=== PATIENT | female | born 1960 | race Caucasian/White ===

== ENCOUNTER 2017-01-23 10:43 | Emergency (ER) | payer OTHER, BC ==
[~2017-01-23] VITALS: Ht 157.5 cm; Wt 60.0 kg
[~2017-01-23 10:43] MED LIST: ALPR0.5T6 PO; AMLO-145 PO; ASPI-535 PO; ASPI-664 PO; CHOL2000 PO; CLON-379 PO; GABA300C16 PO; GLIM4TAB PO; HYDR-3504; HYDR-3672 PO; INSU100C SC; LANT3I; LINA5TAB PO; LOSA100T7 PO; METF500T4 PO; NORT25CA PO; NP.1OP15; PANT40TA4 PO; TOPI-44 PO
[2017-01-23 10:46] VITALS: Ht 157.5 cm; Wt 60.0 kg
[2017-01-23] MEDS ORDERED: ZOLP5TAB6 PO (11:16)
[2017-01-23] MEDS ORDERED: ALPR0.5T6 PO (11:17)
[2017-01-23] MEDS ORDERED: MAXZ25 PO (11:17)
[2017-01-23] MEDS ORDERED: CARI350T PO (11:17)
[2017-01-23] MEDS ORDERED: GABA100C14 PO (11:18)
[2017-01-23] MEDS ORDERED: MTF1000T PO (11:18)
[2017-01-23] MEDS ORDERED: AMLO5TAB4 PO (11:18)
[2017-01-23] MEDS ORDERED: SOLIQUA SUBCUTANE (11:19)
[2017-01-23] MEDS ORDERED: KETOROLAC 15 MG INJ IV STA (11:28)
[2017-01-23] MEDS ORDERED: SOD CHLORIDE 0.9% 1,000 ML IV STA (11:28)
[2017-01-23] MEDS ORDERED: ONDANSETRON 4 MG INJ IV STA (11:28)
[2017-01-23] MEDS ORDERED: LIDOCAINE/MYLANTA 40 ML BTL PO STA (11:28)
[2017-01-23] MEDS ORDERED: BELLADONNA/PHENOBARBITAL TAB PO STA (11:28)
[2017-01-23] MEDS ORDERED: FAMOTIDINE 20 MG TAB PO STA (11:28)
[2017-01-23 11:45] LABS: ADD SCAN DIFF NO
[2017-01-23 11:49] LABS: ADD UMIC NO; URINE BILIRUBIN (Dip) NEGATIVE (NEGATIVE); URINE BLOOD (Dip) NEGATIVE (NEGATIVE); URINE COLOR LT. YELLOW (YELLOW); URINE KETONES (Dip) NEGATIVE (NEGATIVE); URINE LEUKOCYTE ESTERASE (Dip) NEGATIVE (NEGATIVE); URINE NITRITE (Dip) NEGATIVE (NEGATIVE); URINE TOTAL PROTEIN (Dip) NEGATIVE (NEGATIVE); URINE UROBILINOGEN (Dip) 0.2 E.U./dL (0.1-1.0)
[2017-01-23 11:55] LABS: BASOPHIL # 0.1 10^3/ul (0.0-0.1); BASOPHILS % 0.5 % (0.0-2.0); EOSINOPHILS % 0.3 % (0.0-7.0); HEMATOCRIT 44.9 % (37.0-47.0); HEMOGLOBIN 14.7 g/dl (12.0-16.0); LYMPHOCYTES # 3.2 10^3/ul (0.8-2.9); LYMPHOCYTES % 29.2 % (15.0-51.0); MEAN CORPUSCULAR HEMOGLOBIN 26.4 pg (29.0-33.0); MEAN CORPUSCULAR HGB CONC 32.7 g/dl (32.0-37.0); MEAN CORPUSCULAR VOLUME 80.8 fl (82.0-101.0); MEAN PLATELET VOLUME 10.2 fl (7.4-10.4); MONOCYTE # 0.6 10^3/ul (0.3-0.9); MONOCYTES % 5.4 % (0.0-11.0); NEUTROPHIL # 7.1 10^3/ul (1.6-7.5); NEUTROPHILS % 64.3 % (39.0-77.0); PLATELET COUNT 317 10^3/UL (140-415); RED BLOOD COUNT 5.56 10^6/ul (4.20-5.40); RED CELL DISTRIBUTION WIDTH 13.8 % (11.5-14.5)
[2017-01-23 11:57] LABS: ALBUMIN 5.2 g/dl (3.3-4.9); CHLORIDE 93 mmol/L (97-110)
[2017-01-23 11:58] LABS: POTASSIUM 3.9 mmol/L (3.5-5.1); SODIUM 139 mmol/L (135-144)
[2017-01-23 12:00] LABS: ANION GAP 18 (8-16); ASPARTATE AMINO TRANSFERASE 56 IU/L (15-46); BILIRUBIN,INDIRECT 0.2 mg/dl (0-1.1); BILIRUBIN,TOTAL 0.2 mg/dl (0.2-1.3); CARBON DIOXIDE 32 mmol/L (21-31); CREATININE 0.77 mg/dl (0.44-1.00)
[2017-01-23 12:01] LABS: ALANINE AMINOTRANSFERASE 93 IU/L (13-69); ALBUMIN/GLOBULIN RATIO 1.44; ALKALINE PHOSPHATASE 96 IU/L (42-121); BLOOD UREA NITROGEN 13 mg/dl (7-20); CALCIUM 10.1 mg/dl (8.4-10.2); GLUCOSE 141 mg/dl (70-220); TOTAL PROTEIN 8.8 g/dl (6.1-8.1)
[2017-01-23 12:17] LABS: TROPONIN-I < 0.012 ng/ml (0.00-0.12)
--- NOTE | 2017-01-23 12:59 | RADRPT ---
PROCEDURE: CT Abdomen and Pelvis without contrast. CLINICAL INDICATION: Abdominal pain. Epigastric pain. TECHNIQUE: CT scan of the abdomen and pelvis without contrast was performed on a multi-slice CT sc sarah without intravenous contrast. Coronal and sagittal reformatted images were obtained from the axial source images. Images were reviewed on a high-resolution PACS workstation. One or more of the following does reduction techniques were used: Automated exposure control; adjustment of the mA an d/or kV according to patient size; use of the aorta of reconstruction technique. The total exam CTD I equals 11.0 mGy and the total exam DLP equals 576.6 mGy-cm. COMPARISON: CT abdomen pelvis 12/31/2013 FINDINGS: There is minimal basilar scarring or atelectasis.. Heart size is normal, and there is no evidence o f pericardial thickening or effusion. Coronary artery calcifications are present. There is diffuse decreased echogenicity of the hepatic parenchyma consistent with fatty infiltration . The liver, spleen, and pancreas are otherwise normal given the limitations of a noncontrast CT ex amination. The gallbladder is normal. There is mild nodularity of the left adrenal gland which is stable compared to 2013. The adrenal gl ands are otherwise normal. There is a 2 mm nonobstructing right lower pole renal calculus, stable c ompared to 12/31/2013. No other renal calculi are seen. There is no hydronephrosis. The aorta is of normal caliber. Atherosclerotic calcifications are present. There is no retroperito juan a lymph node enlargment. There is no evidence of large or small bowel obstruction. There are a few scattered colonic diverti cula. There is no CT evidence of diverticulitis. A normal appendix is identified. No free fluid or fluid collections are identified. No inflammatory changes are seen. The uterus is absent. No enlarged pelvic sidewall lymph nodes are seen. The bladder is within zaheer l limits. No free fluid is identified. The inguinal regions are unremarkable. There are degenerative change of the lumbar spine, worst in the lower lumbar spine. IMPRESSION: 1. No CT evidence of acute intra-abdominal or pelvic process. 2. Atherosclerotic vascular disease including coronary artery calcifications. 3. Fatty infiltration of the liver. 4. 2 mm nonobstructing right lower pole renal calculus. 5. Diverticulosis without evidence of diverticulitis RPTAT: AA .Barry Ward MD, MD Date Time Electronically viewed and signed by .Barry Ward MD, MD on 01/23/2017 12:58 .B/
[2017-01-23] MEDS ORDERED: IBUP-1542 PO (13:39)
[2017-01-23] MEDS ORDERED: ONDA4TAB8 PO (13:39)
[2017-01-23] MEDS ORDERED: MAG355OR14 PO (13:39)
--- NOTE | 2017-01-23 13:42 | ERD ---
ER Documentation Chief Complaint Date/Time DATE: 01/23/17 TIME: 13:40 Chief Complaint tearful, c/o diarrhea, vomiting HPI 56-year-old woman complains of 2 days of vomiting and diarrhea about 3 episodes of each per day with abdominal cramping. She denies melena or blood per rectum , no hematemesis or bilious emesis noted, no fevers or chills, no dysuria, no complaints of chest pain or shortness of breath. Patient denies any unusual oral intake or ingestion of poorly stored foods. ROS All systems reviewed and are negative except as per history of present illness. Medications Home Meds Active Scripts Ondansetron Hcl* (Zofran*) 4 Mg Tablet, 4 MG PO Q8H Y for NAUSEA AND/OR VOMITING , #14 TAB Prov:LANA BURRIS MD 01/23/17 Mag Hydrox/Al Hydrox/Simeth (Maalox Advanced Suspension) 355 Ml Oral.susp, 2 TSP PO TID for PAIN, #24 OZ Prov:LANA BURRIS MD 01/23/17 Ibuprofen* (Ibuprofen*) 600 Mg Tablet, 600 MG PO Q8 for PAIN AND/OR INFLAMMATION , #30 TAB Prov:LANA BURRIS MD 01/23/17 Reported Medications [Soliqua] No Conflict Check, 30-45 UNIT SUBCUTANE DAILY 01/23/17 Metformin* (Glucophage*) 1,000 Mg Tablet, 1000 MG PO BID, #60 TAB 01/23/17 Gabapentin* (Gabapentin*) 100 Mg Capsule, 100 MG PO QHS, #90 CAP 01/23/17 Amlodipine Besylate* (Norvasc*) 5 Mg Tablet, 5 MG PO DAILY, TAB 01/23/17 Alprazolam* (Alprazolam*) 0.5 Mg Tablet, 0.5 MG PO DAILY Y for ANXIETY, TAB 01/23/17 Carisoprodol* (Soma*) 350 Mg Tablet, 350 MG PO QHS Y for MUSCLE SPASMS, TAB 01/23/17 Triamterene/Hctz* (Maxzide (37.5-25)*) 1 Each Tablet, 1 EACH PO DAILY, #30 TAB 01/23/17 Zolpidem Tartrate* (Zolpidem Tartrate*) 5 Mg Tablet, 5 MG PO QHS Y for INSOMNIA , #30 TAB 01/23/17 Discontinued Reported Medications Topiramate* (Topiramate*) 25 Mg Tablet, 25 MG PO BID 11/10/15 Naphazoline Hcl* (Ak-Con*) 0.1% - 15 ML Drops Opht 11/10/15 Nortriptyline Hcl* (Nortriptyline Hcl*) 25 Mg Capsule, 25 MG PO DAILY 11/10/15 Gabapentin* (Gabapentin*) 300 Mg Capsule, 300 MG PO TID 11/10/15 Pantoprazole* (Pantoprazole*) 40 Mg Tablet.dr, 40 MG PO DAILY, #30 11/10/15 Alprazolam* (Alprazolam*) 0.5 Mg Tablet, 0.5 MG PO DAILY 11/10/15 Hydralazine Hcl* (Apresoline*) 50 Mg Tab, 50 MG PO BID 11/10/15 Hydrocodone Bit-Acetaminophen (Hydrocodone-APAP) 10-325MG Tablet, #45 11/10/15 Linagliptin (TRADJENTA) 5 Mg Tablet, 5 MG PO DAILY 11/10/15 Insulin Glargine* (Lantus*) 100 Unit/Ml Soln 11/10/15 Losartan Potassium* (Losartan Potassium*) 100 Mg Tablet, 100 MG PO DAILY 11/10/15 Glimepiride* (Glimepiride*) 4 Mg Tablet, 4 MG PO BID 11/10/15 Aspirin* (Aspirin* EC) 81 Mg Tablet.dr, 81 MG PO DAILY 11/10/15 Amlodipine Besylate* (Amlodipine Besylate*) 5 Mg Tablet, 5 MG PO DAILY 11/10/15 Metformin* (Glucophage*) 500 Mg Tab, 500 MG PO BID 11/10/15 Cholecalciferol* (Vitamin D3*) 2,000 Unit Cap, 2000 UNIT PO DAILY, CAP 01/26/15 Aspirin Ec (Aspir 81) 81 Mg Tablet.dr, 81 MG PO DAILY, TAB 01/26/15 Clonidine Hcl* (Clonidine Hcl*) 0.1 Mg Tab, 0.1 MG PO BID, TAB 01/26/15 Insulin Lispro (Humalog) 100 U/Ml Cartridge, 15 UNITS SC TID, EA 01/26/15 Allergies Allergies: Coded Allergies: No Known Drug Allergies (Verified Allergy, Unknown, 01/26/15) PMhx/Soc Hypertension, diabetes mellitus, obesity, gastritis History of Surgery: Yes (neck surgery ) Anesthesia Reaction: No Hx Neurological Disorder: No Hx Respiratory Disorders: No Hx Cardiac Disorders: Yes (HTN, hyperlipdemia ) Hx Psychiatric Problems: No Hx Miscellaneous Medical Probl: Yes (DM) Hx Alcohol Use: No Hx Substance Use: No Hx Tobacco Use: No Smoking Status: Never smoker FmHx Family History: diabetes Physical Exam Vitals Vital Signs Date Time Temp Pulse Resp B/P Pulse Ox O2 Delivery O2 Flow Rate FiO2 01/23/17 14:42 98.0 73 18 128/68 99 Room Air 01/23/17 10:46 98.1 94 20 187/72 99 Physical Exam GENERAL: Well-developed, well-nourished, well-hydrated, in no apparent distress , looks nontoxic in appearance HEENT: Moist mucous membranes, pink conjunctiva, no cervical spine tenderness or step-off deformities, no goiter, no jaundice or icterus, extraocular movements intact without pain. No submandibular induration, and no pharyngeal erythema NEURO: Alert and oriented 3, cranial nerves II through XII intact bilaterally, pupils equal round reactive to light, no focal deficits or facial asymmetry, sensation intact distally Strength 5/5 in upper and lower extremities bilaterally CARDIAC: Regular rate and rhythm, no murmurs rubs or gallops LUNGS: Clear bilaterally no wheezing crackles or stridor ABDOMEN: Soft nontender, no guarding, no rigidity, no rebound, no psoas sign no obturator sign. Normoactive bowel sounds SKIN: Warm and dry to touch, no abrasions, contusions, or hematomas, no lacerations, no ecchymosis, no target lesions, and without ulcers EXTREMITIES: No clubbing cyanosis or edema, calves are bilaterally symmetrical, no Homans sign, no popliteal cord sign. Distal pulses equal and bilateral PSYCH: Normal affect without agitation or irritability Result Diagram: 01/23/17 1125 01/23/17 1125 Results 24 hrs Laboratory Tests Test 01/23/17 11:20 01/23/17 11:25 Urine Color LT. YELLOW Urine Clarity CLEAR Urine pH 7.0 Urine Specific Jackson 1.010 Urine Ketones NEGATIVE Urine Nitrite NEGATIVE Urine Bilirubin NEGATIVE Urine Urobilinogen 0.2 E.U./dL Urine Leukocyte Esterase NEGATIVE Urine Hemoglobin NEGATIVE Urine Glucose 0.5%% Urine Total Protein NEGATIVE White Blood Count 11.010^3/ul Red Blood Count 5.5610^6/ul Hemoglobin 14.7g/dl Hematocrit 44.9% Mean Corpuscular Volume 80.8fl Mean Corpuscular Hemoglobin 26.4pg Mean Corpuscular Hemoglobin Concent 32.7g/dl Red Cell Distribution Width 13.8% Platelet Count 09965^3/UL Mean Platelet Volume 10.2fl Neutrophils % 64.3% Lymphocytes % 29.2% Monocytes % 5.4% Eosinophils % 0.3% Basophils % 0.5% Nucleated Red Blood Cells % 0.0/100WBC Neutrophils # 7.110^3/ul Lymphocytes # 3.210^3/ul Monocytes # 0.610^3/ul Eosinophils # 0.010^3/ul Basophils # 0.110^3/ul Nucleated Red Blood Cells # 0.010^3/ul Sodium Level 139mmol/L Potassium Level 3.9mmol/L Chloride Level 93mmol/L Carbon Dioxide Level 32mmol/L Anion Gap 18 Blood Urea Nitrogen 13mg/dl Creatinine 0.77mg/dl Glucose Level 141mg/dl Calcium Level 10.1mg/dl Total Bilirubin 0.2mg/dl Direct Bilirubin 0.00mg/dl Indirect Bilirubin 0.2mg/dl Aspartate Amino Transf (AST/SGOT) 56IU/L Alanine Aminotransferase (ALT/SGPT) 93IU/L Alkaline Phosphatase 96IU/L Troponin I < 0.012ng/ml Total Protein 8.8g/dl Albumin 5.2g/dl Globulin 3.60g/dl Albumin/Globulin Ratio 1.44 Lipase 227U/L Current Medications Medications (Trade) Dose Ordered Sig/Chica Route PRN Reason Start Time Stop Time Status Last Admin Dose Admin Sodium Chloride (NS) 1,000 ml @ 1,000 mls/hr Q1H STAT IV 01/23/17 11:28 01/23/17 12:27 DC 01/23/17 12:03 Ondansetron HCl (Zofran Inj) 4 mg ONCE STAT IV 01/23/17 11:28 01/23/17 11:30 DC 01/23/17 12:04 Famotidine (Pepcid) 40 mg ONCE STAT PO 01/23/17 11:28 01/23/17 11:30 DC 01/23/17 12:03 Miscellaneous Medication (Gi Cocktail (2)) 40 ml ONCE STAT PO 01/23/17 11:28 01/23/17 11:30 DC 01/23/17 12:04 Belladonna/ Phenobarbital () 2 tab ONCE STAT PO 01/23/17 11:28 01/23/17 11:30 DC 01/23/17 12:04 Ketorolac Tromethamine (Toradol) 15 mg ONCE STAT IV 01/23/17 11:28 01/23/17 11:30 DC 01/23/17 12:04 Procedures/MDM IV line was established patient was placed on recreation professor rhythm strip revealed a sinus rhythm at about 80 bpm with upright P and T waves. Patient was afebrile. I administered 1 L normal saline intravenously, Toradol 50 mg IV, Zofran 4 mg IV , and a GI cocktail 50 cc p.o. Patient also received famotidine 40 mg p.o. with good response. EKG performed, read by me revealed a normal sinus rhythm at 78 bpm, normal axis , right ventricular conduction delay, QRS duration 104 ms, no concerning ST elevations or depressions noted. CT scan of the abdomen pelvis revealed right inferior pole calculus, positive diverticulosis without diverticulitis. No acute inflammatory infectious pathology noted. Please refer to radiologist dictation for full report. CBC and electrolytes were unremarkable, liver function tests normal, troponin was negative. Urine analysis was negative for infection. Differential diagnoses considered, included but not limited to acute coronary syndrome, pulmonary embolism, aortic dissection, abdominal aortic aneurysm, sepsis, stroke, meningitis, encephalitis, pneumonia, appendicitis, cholecystitis , bowel obstruction, pyelonephritis, nephrolithiasis, cystitis, as well as metabolic, hematologic, and electrolyte abnormalities. As well as abscess, cellulitis, fractures, and dislocations. Patient feels much better at this time, and vital signs are normal, symptoms have improved. I did give strict instructions to return to the ED if symptoms continue or worsen, patient will otherwise follow-up with primary care physician. Patient understood instructions and agreed to plan. Departure Diagnosis: Primary Impression: Hypertension Hypertension type: essential hypertension Qualified Code: I10 - Essential hypertension Additional Impressions: Vomiting and diarrhea Renal calculus Diverticulosis Diverticulosis site: diverticulosis of large intestine Diverticulosis bleeding: diverticulosis without bleeding Qualified Code: K57.30 - Diverticulosis of large intestine without hemorrhage Condition: Good Patient Instructions: Vomiting And Diarrhea, Nonspecific (Adult) Referrals: HAO TIMMONS MD (PCP) LANA BURRIS MD Jan 23, 2017 13:42
[2017-01-23 14:42] VITALS: BP 128/68; PULSE 73; RESP 18; TEMP 98
== END 2017-01-23 14:42 | disposition home or self-care (01) ==
LOC: E/R 10:43
DX: I10 Essential (primary) hypertension (principal); R11.10 Vomiting, unspecified; R19.7 Diarrhea, unspecified; N20.0 Calculus of kidney; K57.30 Diverticulosis of large intestine without perforation or abscess without bleeding; E11.9 Type 2 diabetes mellitus without complications; Z79.82 Long term (current) use of aspirin; Z79.84 Long term (current) use of oral hypoglycemic drugs; Z79.4 Long term (current) use of insulin
CPT/HCPCS: 74176; 80053; 81003; 83690; 84484; 85025; 93005; J1885; J2405; J7030; 36415; 96374; 96375

== ENCOUNTER 2017-05-30 23:13 | Emergency (ER) | payer OTHER, BC ==
[~2017-05-30] VITALS: Ht 157.5 cm; Wt 80.0 kg
[~2017-05-30 23:13] MED LIST changes: -AMLO-145 PO; +AMLO5TAB4 PO; -ASPI-535 PO; -ASPI-664 PO; +CARI350T PO; -CHOL2000 PO; -CLON-379 PO; +GABA100C14 PO; -GABA300C16 PO; -GLIM4TAB PO; -HYDR-3504; -HYDR-3672 PO; +IBUP-1542 PO; -INSU100C SC; -LANT3I; -LINA5TAB PO; -LOSA100T7 PO; +MAG355OR14 PO; +MAXZ25 PO; -METF500T4 PO; +MTF1000T PO; -NORT25CA PO; -NP.1OP15; +ONDA4TAB8 PO; -PANT40TA4 PO; +SOLIQUA SUBCUTANE; -TOPI-44 PO; +ZOLP5TAB7 PO
[2017-05-30 23:16] VITALS: Ht 157.5 cm; Wt 80.0 kg
[2017-05-30] MEDS ORDERED: ONDANSETRON 4 MG INJ IV STA (23:24)
[2017-05-30] MEDS ORDERED: SODIUM CHLORIDE 0.9% 1L BAG IV* STA (23:24)
[2017-05-30] MEDS ORDERED: morphine 10 MG INJ IV ONE (23:30)
--- NOTE | 2017-05-31 00:10 | RADRPT ---
PROCEDURE: XR Chest. CLINICAL INDICATION: Sepsis. TECHNIQUE: AP Portable chest. COMPARISON: 01/26/2015 FINDINGS: The cardiomediastinal silhouette is normal. The lungs are clear. The osseous structures are unrema rkable. There is no free air under the diaphragm. IMPRESSION: No acute findings. RPTAT: HIKT .Maurice Anton MD, MD Date Time Electronically viewed and signed by .Maurice Anton MD, MD on 05/31/2017 00:10 .T/
[2017-05-31] MEDS ORDERED: morphine 4 MG/ML VIAL IV STA ×2 (00:15→02:22)
[2017-05-31 00:29] LABS: ADD UMIC NO; UR ASCORBIC ACID NEGATIVE (NEGATIVE); UR BILIRUBIN (Dip) NEGATIVE (NEGATIVE); UR BLOOD (Dip) NEGATIVE (NEGATIVE); UR CLARITY CLEAR (CLEAR); UR COLOR COLORLESS (YELLOW); UR GLUCOSE (Dip) 3+ mg/dL (NEGATIVE); UR KETONES (Dip) NEGATIVE (NEGATIVE); UR LEUKOCYTE ESTERASE (Dip) NEGATIVE Leu/ul (NEGATIVE); UR NITRITE (Dip) NEGATIVE (NEGATIVE); UR SPECIFIC GRAVITY (Dip) 1.001 (1.003-1.030); UR TOTAL PROTEIN (Dip) NEGATIVE (NEGATIVE); UR UROBILINOGEN (Dip) NEGATIVE (NEGATIVE)
[2017-05-31 00:36] LABS: BASOPHIL # 0.1 10^3/ul (0.0-0.1); BASOPHILS % 0.5 % (0.0-2.0); EOSINOPHILS # 0.2 10^3/ul (0.0-0.5); EOSINOPHILS % 1.8 % (0.0-7.0); HEMATOCRIT 38.7 % (37.0-47.0); HEMOGLOBIN 12.7 g/dl (12.0-16.0); MEAN CORPUSCULAR HEMOGLOBIN 27.3 pg (29.0-33.0); MEAN CORPUSCULAR HGB CONC 32.8 g/dl (32.0-37.0); MEAN CORPUSCULAR VOLUME 83.2 fl (82.0-101.0); MEAN PLATELET VOLUME 10.7 fl (7.4-10.4); MONOCYTE # 0.8 10^3/ul (0.3-0.9); MONOCYTES % 7.5 % (0.0-11.0); NEUTROPHIL # 5.9 10^3/ul (1.6-7.5); NEUTROPHILS % 53.8 % (39.0-77.0); PLATELET COUNT 238 10^3/UL (140-415); RED BLOOD COUNT 4.65 10^6/ul (4.20-5.40); RED CELL DISTRIBUTION WIDTH 14.6 % (11.5-14.5)
--- NOTE | 2017-05-31 00:45 | RADRPT ---
PROCEDURE: CT Abdomen and pelvis without contrast. CLINICAL INDICATION: Abdominal pain. TECHNIQUE: CT scan of the abdomen and pelvis was performed on a multi-detector high-resolution CT scanner. Contiguous axial images were obtained from the lung bases to the ischial tuberosities wit hout intravenous contrast. Coronal and sagittal reformatted images were also obtained. Images were reviewed on the PACS workstation. One or more of the following dose reduction techniques were used: - Automated exposure control. - Adjustment of the mA and/or kV according to patient size. - Use of iterative reconstruction technique. Exam CTD/vol = 11.72 mGy. Total exam DLP = 621.62 mGy-cm. COMPARISON: 01/23/2017. FINDINGS: Evaluation of the lung bases demonstrates minimal bibasilar atelectasis. Abdomen: The liver is normal in size and diffusely low in attenuation consistent with fatty infiltr ation. There is no focal mass or dilatation of the biliary tree. The gallbladder is not distended. The spleen, pancreas and bilateral adrenal glands are within normal limits. Bilateral kidneys are normal in size with no contour deforming mass identified. There is a 1 mm calculus within the lowe r pole of the right kidney. There is no radiopaque ureteral calculus identified. There is no hydro nephrosis or hydroureter. There is no retroperitoneal adenopathy. The abdominal aorta is of normal caliber with scattered atherosclerotic calcifications. There is no abnormal bowel wall thickening or distension. There is no bowel obstruction or free air . A normal appendix is identified. There is no diverticulosis or diverticulitis. There is no asci jorgito. Pelvis: The bladder is unremarkable. The uterus is absent. There is no significant pelvic adenopa thy or free fluid. Evaluation of the osseous structures demonstrates no suspicious lytic or blastic lesion. IMPRESSION: No acute abnormality identified within the abdomen and pelvis. Fatty infiltration of the liver. Nonobstructing right renal calculus. Vascular calcifications reflective of atherosclerosis. .Don Hook MD, MD Date Time Electronically viewed and signed by .Don Hook MD, MD on 05/31/2017 00:45 .T/
[2017-05-31] MEDS ORDERED: KETOROLAC 30 MG INJ IV STA (00:54)
[2017-05-31 00:56] LABS: INR 0.82; PROTIME 11.3 Sec (12.2-14.2); PT RATIO 0.9
[2017-05-31 00:57] LABS: PARTIAL THROMBOPLASTIN TIME 29.2 Sec (25.0-35.0)
[2017-05-31 01:04] LABS: ALANINE AMINOTRANSFERASE 56 IU/L (13-69); ALBUMIN 4.1 g/dl (3.3-4.9); ALBUMIN/GLOBULIN RATIO 1.51; ALKALINE PHOSPHATASE 98 IU/L (42-121); ANION GAP 24 (8-16); ASPARTATE AMINO TRANSFERASE 30 IU/L (15-46); BLOOD UREA NITROGEN 13 mg/dl (7-20); CALCIUM 9.8 mg/dl (8.4-10.2); CARBON DIOXIDE 31 mmol/L (21-31); CHLORIDE 94 mmol/L (97-110); CREATININE 0.64 mg/dl (0.44-1.00); GLUCOSE 238 mg/dl (70-220); POTASSIUM 3.9 mmol/L (3.5-5.1); SODIUM 145 mmol/L (135-144); TOTAL PROTEIN 6.8 g/dl (6.1-8.1)
[2017-05-31] MEDS ORDERED: IOHEXOL 100 ML ONE (01:22)
[2017-05-31] MEDS ORDERED: SOD CHLORIDE 0.9% 100 ML ONE (01:22)
[2017-05-31 01:26] LABS: TROPONIN-I < 0.012 ng/ml (0.00-0.12)
--- NOTE | 2017-05-31 01:52 | RADRPT ---
PROCEDURE: CT angiogram chest. CLINICAL INDICATION: Shortness of breath. TECHNIQUE: CT angiogram of the chest was performed utilizing axial images with reconstructions in sagittal and coronal planes following the intravenous administration of 100 cc Omnipaque 350 contras t. The administered radiation dose is CTDI 10.1 mGy, DLP 359 mGy-cm. COMPARISON: No pertinent prior examinations are submitted for comparison. FINDINGS: Pulmonary angiogram: The pulmonary arteries are adequately opacified to the level of the segmental pulmonary artery branches. There is minimal respiratory motion artifact. There is no evidence of p ulmonary embolus. Aortogram: There is no evidence of aortic dissection or aneurysm. Major branches of the aorta are patent. Chest: The lungs are clear. No pleural or pericardial effusions are seen. The tracheobronchial tree is un remarkable. The heart is normal in size. No pericardial effusion is seen. There is no evidence of mediastinal or hilar adenopathy. Visualized Upper abdomen: Unremarkable. Osseous structures: Unremarkable. IMPRESSION: No evidence of pulmonary embolus. RPTAT: HIKT .Maurice Anton MD, MD Date Time Electronically viewed and signed by .Maurice Anton MD, on 05/31/2017 01:51 .T/
[2017-05-31] MEDS ORDERED: HYDR-906 PO (02:48)
--- NOTE | 2017-05-31 02:48 | ERD ---
ER Documentation Chief Complaint Date/Time DATE: 05/31/17 TIME: 02:43 Chief Complaint LUQ abdominal pain x 1 day, radiating to L arm/shoulder HPI This is a 56-year-old female presents to the emergency room for evaluation of abdominal pain. The patient localizes her abdominal pain to the left portion of abdomen states that is been present for 1 days duration. She describes her pain as an achy pain with some mild radiation to her back. The patient denies any fevers associated with this pain and denies any vomiting but does state she has mild nausea. ROS All systems reviewed and are negative except as per history of present illness. Medications Home Meds Active Scripts Ondansetron Hcl* (Zofran*) 4 Mg Tablet, 4 MG PO Q8H Y for NAUSEA AND/OR VOMITING , #14 TAB Prov:LANA BURRIS MD 01/23/17 Mag Hydrox/Al Hydrox/Simeth (Maalox Advanced Suspension) 355 Ml Oral.susp, 2 TSP PO TID for PAIN, #24 OZ Prov:LANA BURRIS MD 01/23/17 Ibuprofen* (Ibuprofen*) 600 Mg Tablet, 600 MG PO Q8 for PAIN AND/OR INFLAMMATION , #30 TAB Prov:LANA BURRIS MD 01/23/17 Reported Medications [Soliqua] No Conflict Check, 30-45 UNIT SUBCUTANE DAILY 01/23/17 Metformin* (Glucophage*) 1,000 Mg Tablet, 1000 MG PO BID, #60 TAB 01/23/17 Gabapentin* (Gabapentin*) 100 Mg Capsule, 100 MG PO QHS, #90 CAP 01/23/17 Amlodipine Besylate* (Norvasc*) 5 Mg Tablet, 5 MG PO DAILY, TAB 01/23/17 Alprazolam* (Alprazolam*) 0.5 Mg Tablet, 0.5 MG PO DAILY Y for ANXIETY, TAB 01/23/17 Carisoprodol* (Soma*) 350 Mg Tablet, 350 MG PO QHS Y for MUSCLE SPASMS, TAB 01/23/17 Triamterene/Hctz* (Maxzide (37.5-25)*) 1 Each Tablet, 1 EACH PO DAILY, #30 TAB 01/23/17 Zolpidem Tartrate* (Zolpidem Tartrate*) 5 Mg Tablet, 5 MG PO QHS Y for INSOMNIA , #30 TAB 01/23/17 Allergies Allergies: Coded Allergies: No Known Drug Allergies (Verified Allergy, Unknown, 01/26/15) PMhx/Soc History of Surgery: Yes (neck surgery ) Anesthesia Reaction: No Hx Neurological Disorder: No Hx Respiratory Disorders: No Hx Cardiac Disorders: Yes (HTN, hyperlipdemia ) Hx Psychiatric Problems: No Hx Miscellaneous Medical Probl: Yes (DM) Hx Alcohol Use: No Hx Substance Use: No Hx Tobacco Use: No Smoking Status: Never smoker Physical Exam Vitals Vital Signs Date Time Temp Pulse Resp B/P Pulse Ox O2 Delivery O2 Flow Rate FiO2 05/30/17 23:30 101 22 165/72 100 Room Air 05/30/17 23:16 98.1 106 24 178/81 100 Physical Exam INITIAL VITAL SIGNS: Reviewed by me GENERAL: The patient is well developed and appropriate for usual state of health in no apparent distress HEENT: Pupils equal, round, and reactive to light. EOMI. There is no scleral icterus. NECK: C-spine is soft and supple, there is no meningismus. There is no cervical lymphadenopathy. LUNGS: Clear to auscultation bilaterally. There are no rales, wheezes or rhonchi. HEART: Regular rate and rhythm, no murmurs, clicks, rubs or gallops. ABDOMEN: Left upper quadrant tenderness to palpation, no CVAT. There are bowel sounds in all four quadrants. No rebound or guarding. EXTREMITIES: There is no peripheral cyanosis or edema. No focal swelling or erythema. NEUROLOGICAL: The patient moves all four extremities with 5/5 strength. Cranial nerves II - XII are intact. Normal gait. Alert and oriented SKIN: There is no apparent rash or petechiae. HEME/LYMPHATIC: There is no evidence of excessive bruising or lymphedema. PSYCHIATRIC: The patient does not appear anxious or depressed. Result Diagram: 05/31/17 0010 05/31/17 0010 Results 24 hrs Laboratory Tests Test 05/31/17 00:05 05/31/17 00:10 Urine Color COLORLESS Urine Clarity CLEAR Urine pH 7.0 Urine Specific [place] 1.001 Urine Ketones NEGATIVEmg/dL Urine Nitrite NEGATIVEmg/dL Urine Bilirubin NEGATIVEmg/dL Urine Urobilinogen NEGATIVEmg/dL Urine Leukocyte Esterase NEGATIVELeu/ul Urine Hemoglobin NEGATIVEmg/dL Urine Glucose 3+mg/dL Urine Total Protein NEGATIVEmg/dl White Blood Count 11.010^3/ul Red Blood Count 4.6510^6/ul Hemoglobin 12.7g/dl Hematocrit 38.7% Mean Corpuscular Volume 83.2fl Mean Corpuscular Hemoglobin 27.3pg Mean Corpuscular Hemoglobin Concent 32.8g/dl Red Cell Distribution Width 14.6% Platelet Count 38325^3/UL Mean Platelet Volume 10.7fl Neutrophils % 53.8% Lymphocytes % 36.0% Monocytes % 7.5% Eosinophils % 1.8% Basophils % 0.5% Nucleated Red Blood Cells % 0.0/100WBC Neutrophils # 5.910^3/ul Lymphocytes # 4.010^3/ul Monocytes # 0.810^3/ul Eosinophils # 0.210^3/ul Basophils # 0.110^3/ul Nucleated Red Blood Cells # 0.010^3/ul Prothrombin Time 11.3Sec Prothrombin Time Ratio 0.9 INR International Normalized Ratio 0.82 Activated Partial Thromboplast Time 29.2Sec Sodium Level 145mmol/L Potassium Level 3.9mmol/L Chloride Level 94mmol/L Carbon Dioxide Level 31mmol/L Anion Gap 24 Blood Urea Nitrogen 13mg/dl Creatinine 0.64mg/dl Glucose Level 238mg/dl Lactic Acid Level 3.5mmol/L Calcium Level 9.8mg/dl Total Bilirubin 0.0mg/dl Direct Bilirubin 0.00mg/dl Indirect Bilirubin 0.0mg/dl Aspartate Amino Transf (AST/SGOT) 30IU/L Alanine Aminotransferase (ALT/SGPT) 56IU/L Alkaline Phosphatase 98IU/L Troponin I < 0.012ng/ml Total Protein 6.8g/dl Albumin 4.1g/dl Globulin 2.70g/dl Albumin/Globulin Ratio 1.51 Current Medications Medications (Trade) Dose Ordered Sig/Chica Route PRN Reason Start Time Stop Time Status Last Admin Dose Admin Sodium Chloride (NS) 2,500 ml BOLUS OVER 2 HOURS STAT IV* 05/30/17 23:24 05/30/17 23:25 DC 05/30/17 23:40 Morphine Sulfate (morphine) 6 mg ONCE ONCE IV 05/30/17 23:30 05/30/17 23:31 DC 05/30/17 23:39 Ondansetron HCl (Zofran Inj) 4 mg ONCE STAT IV 05/30/17 23:24 05/30/17 23:26 DC 05/30/17 23:39 Morphine Sulfate (morphine) 4 mg ONCE STAT IV 05/31/17 00:15 05/31/17 00:16 DC 05/31/17 00:31 Ketorolac Tromethamine (Toradol) 30 mg ONCE STAT IV 05/31/17 00:54 05/31/17 00:55 DC 05/31/17 00:59 IV Flush 10 ml 10 ml STK-MED ONCE .ROUTE 05/31/17 01:22 05/31/17 01:23 DC 05/31/17 01:30 Sodium Chloride 100 ml @ ud STK-MED ONCE .ROUTE 05/31/17 01:22 05/31/17 01:23 DC 05/31/17 01:31 Iohexol (Omnipaque) 100 ml @ ud STK-MED ONCE .ROUTE 05/31/17 01:22 05/31/17 01:23 DC 05/31/17 01:31 Morphine Sulfate (morphine) 4 mg ONCE STAT IV 05/31/17 02:22 05/31/17 02:24 DC 05/31/17 02:27 Procedures/MDM EKG: Rate/Rhythm: [Normal Sinus Rhythm] QRS, ST, T-waves: [No changes consistent w/ acute ischemia] Impression: [No evidence of ischemia or arrhythmia] Chest X-ray 1V Interpreted by me: Soft Tissue: No acute abnormalities Bones: No acute abnormalities Mediastinum/Cardiac Silhouette/Lungs: [No acute abnormalities] CT abdomen pelvis without contrast: No acute abnormality identified within the abdomen and pelvis. Fatty infiltration of the liver. Nonobstructing right renal calculus. Vascular calcifications reflective of atherosclerosis. CTA chest: No evidence of pulmonary embolus. This 56-year-old female presents to the emergency room for evaluation of abdominal pain. When I evaluated this patient she was nontoxic-appearing, however she was complaining of abdominal pain in the left upper quadrant. She definitely had tenderness to palpation on my examination. Lab work was obtained which does show a slight leukocytosis and a lactic acid greater than 3. The patient underwent a CT of the abdomen and pelvis which does not reveal any acute intra-abdominal pathology. The patient was given morphine, Toradol and Zofran. When I reevaluated this patient she stated that she still had some pain in the left upper quadrant. I wanted to rule out pulmonary embolism as a cause of this pain, and I did obtain a CT a of the chest to rule out a pulmonary embolus which came back with no evidence of pulmonary embolus. This patient is not hypoxic at this time. She was given a second dose of morphine in the emergency room and will be discharged at this time with a prescription for Wiggins and instructions to return to the ER if her pain worsens. The patient is comfortable with our plan of care at this time. Her EKG is nonischemic, troponin is negative. Differential diagnoses entertained was broad with potential high acuity. Patient has been evaluated for appendicitis, cholecystitis, and other high risk medical and surgical causes of abdominal pain. Ultimately the patient's evaluation is nondiagnostic. Based on the patient's lack of risk factors, as well as the patient's clinical, laboratory, and imaging data, the patient appears to be low risk for these high risk causes of abdominal pain. Departure Diagnosis: Primary Impression: Abdominal pain Additional Impression: Hyperglycemia Condition: Stable SABINO DIALLO DO May 31, 2017 02:48
[2017-05-31 03:25] VITALS: BP 138/72; PULSE 81; RESP 18; TEMP 97.8
== END 2017-05-31 03:40 | disposition home or self-care (01) ==
LOC: E/R 23:13
DX: R10.12 Left upper quadrant pain (principal); I10 Essential (primary) hypertension; E11.65 Type 2 diabetes mellitus with hyperglycemia; Z79.84 Long term (current) use of oral hypoglycemic drugs
CPT/HCPCS: 36415; 71010; 71275; 74176; 80053; 81003; 83605; 84484; 85025; 85610; 85730; 87040; 87086; 93005; 96374; 96375; 96376; 99285; J1885; J2270; J2405; J7030; Q9967

== ENCOUNTER 2018-04-13 22:46 | Emergency (ER) | END 2018-04-14 03:22 | disposition home or self-care (01) ==

== ENCOUNTER 2019-01-01 23:03 | Emergency (ER) | payer OTHER, BC ==
[~2019-01-01] VITALS: Ht 162.6 cm; Wt 80.5 kg
[~2019-01-01 23:03] MED LIST changes: +CIPR500T4 PO; +HYDR-4011 PO; +ONDA4TAB14 PO; +TRAM50TA2 PO
[2019-01-01 23:07] VITALS: Ht 162.6 cm; Wt 80.5 kg
[2019-01-01] MEDS ORDERED: KETOROLAC 30 MG INJ IM STA (23:52)
[2019-01-02] MEDS ORDERED: LORAZEPAM 0.5 MG TAB PO ONE
--- NOTE | 2019-01-02 00:26 | ERD ---
ER Documentation Chief Complaint Chief Complaint bib ra from home for generalized body aches, pains, patient weakness HPI 58-year-old woman with a history of anxiety department by EMS for complaints of "tongue burning" sensation times 4 days. She states she called her PMD who referred her to the emergency department because he was unable to see her in the next few weeks. Patient admits to feeling anxious and stressed and has co mplaints of left lateral neck pain. Patient has a long history of chronic recurrent neck pain status post cervical spine surgery many years ago. She denies paresis or paresthesias, no chest pain or shortness of breath, no suicidal or homicidal ideation. ROS All systems reviewed and are negative except as per history of present illness. Medications Home Meds Active Scripts Diazepam* (Valium*) 5 Mg Tablet, 5 MG PO BID PRN for ANXIETY, #10 TAB Prov:LANA BURRIS MD 01/02/19 Ondansetron (Ondansetron Odt) 4 Mg Tab.rapdis, 4 MG PO Q6H PRN for NAUSEA AND/OR VOMITING, #10 TAB Prov:ELIN HADDAD 04/14/18 Tramadol HCl (Tramadol HCl) 50 Mg Tablet, 50 MG PO Q4 PRN for PAIN, #20 TAB Prov:ELIN HADDAD 04/14/18 Ciprofloxacin Hcl* (Ciprofloxacin Hcl*) 500 Mg Tablet, 500 MG PO BID for 7 Days, TAB Prov:ELIN HADDAD 04/14/18 Hydrocodone/Acetaminophen ([place] 5-325 Tablet) 1 Each Tablet, 1 TAB PO Q6H PRN for PAIN, #15 TAB Prov:SABINO DIALLO DO 05/31/17 Ondansetron Hcl* (Zofran*) 4 Mg Tablet, 4 MG PO Q8H PRN for NAUSEA AND/OR VOMITING, #14 TAB Prov:LANA BURRIS MD 01/23/17 Mag Hydrox/Al Hydrox/Simeth (Maalox Advanced Suspension) 355 Ml Oral.susp, 2 TSP PO TID for PAIN, #24 OZ Prov:LANA BURRIS MD 01/23/17 Ibuprofen* (Ibuprofen*) 600 Mg Tablet, 600 MG PO Q8 for PAIN AND/OR INFLAMMATION, #30 TAB Prov:LANA BURRIS MD 01/23/17 Reported Medications [Soliqua] No Conflict Check, 30-45 UNIT SUBCUTANE DAILY 01/23/17 Metformin* (Glucophage*) 1,000 Mg Tablet, 1000 MG PO BID, #60 TAB 01/23/17 Gabapentin* (Gabapentin*) 100 Mg Capsule, 100 MG PO QHS, #90 CAP 01/23/17 Amlodipine Besylate* (Norvasc*) 5 Mg Tablet, 5 MG PO DAILY, TAB 01/23/17 Alprazolam* (Alprazolam*) 0.5 Mg Tablet, 0.5 MG PO DAILY PRN for ANXIETY, TAB 01/23/17 Carisoprodol* (Soma*) 350 Mg Tablet, 350 MG PO QHS PRN for MUSCLE SPASMS, TAB 01/23/17 Triamterene/Hctz* (Maxzide (37.5-25)*) 1 Each Tablet, 1 EACH PO DAILY, #30 TAB 01/23/17 Zolpidem Tartrate* (Zolpidem Tartrate*) 5 Mg Tablet, 5 MG PO QHS PRN for INSOMNIA, #30 TAB 01/23/17 Allergies Allergies: Coded Allergies: No Known Drug Allergies (Verified Allergy, Unknown, 01/26/15) PMhx/Soc Anxiety, chronic neck pain status post cervical spine surgery, hypertension History of Surgery: Yes (neck surgery, hysterectomy) Anesthesia Reaction: No Hx Neurological Disorder: No Hx Respiratory Disorders: No Hx Cardiac Disorders: Yes (HTN, hyperlipdemia ) Hx Psychiatric Problems: No Hx Miscellaneous Medical Probl: Yes (DM) Hx Alcohol Use: No Hx Substance Use: No Hx Tobacco Use: No Smoking Status: Never smoker Physical Exam Vitals Vital Signs Date Temp Pulse Resp B/P (MAP) Pulse Ox O2 O2 Flow FiO2 Time Delivery Rate 01/02/19 75 18 146/68 100 Room Air 05:15 (94) 01/02/19 70 16 155/78 98 Room Air 04:48 (103) 01/02/19 86 18 157/57 99 Room Air 02:30 (90) 01/01/19 98.1 88 19 200/88 100 Room Air 23:28 (125) 01/01/19 98.1 91 19 202/90 100 23:07 (127) Physical Exam GENERAL: Well-developed, well-nourished, appears anxious, afebrile HEENT: Moist mucous membranes, pink conjunctiva, no cervical spine tenderness or step-off deformities, no goiter, no jaundice or icterus, extraocular movements intact without pain. No submandibular induration, and no pharyngeal erythema NEURO: Alert and oriented 3, cranial nerves II through XII intact bilaterally, pupils equal round reactive to light, no focal deficits or facial asymmetry, sensation intact distally Strength 5/5 in upper and lower extremities bilaterally CARDIAC: Regular rate and rhythm, no murmurs rubs or gallops LUNGS: Clear bilaterally no wheezing crackles or stridor EXTREMITIES: No clubbing cyanosis or edema, calves are bilaterally symmetrical, no Homans sign, no popliteal cord sign. Distal pulses equal and bilateral PSYCH: Anxious Result Diagram: 01/02/194001/02/1940 Results 24 hrs Laboratory Tests Test 01/02/19 00:41 White Blood Count 10.9 10^3/ul Red Blood Count 5.28 10^6/ul Hemoglobin 13.9 g/dl Hematocrit 43.2 % Mean Corpuscular Volume 81.8 fl Mean Corpuscular Hemoglobin 26.3 pg Mean Corpuscular Hemoglobin Concent 32.2 g/dl Red Cell Distribution Width 14.2 % Platelet Count 252 10^3/UL Mean Platelet Volume 11.4 fl Immature Granulocytes % 0.400 % Neutrophils % 57.3 % Lymphocytes % 33.0 % Monocytes % 7.5 % Eosinophils % 1.2 % Basophils % 0.6 % Nucleated Red Blood Cells % 0.0 /100WBC Immature Granulocytes # 0.040 10^3/ul Neutrophils # 6.2 10^3/ul Lymphocytes # 3.6 10^3/ul Monocytes # 0.8 10^3/ul Eosinophils # 0.1 10^3/ul Basophils # 0.1 10^3/ul Nucleated Red Blood Cells # 0.0 10^3/ul Sodium Level 143 mmol/L Potassium Level 3.9 mmol/L Chloride Level 100 mmol/L Carbon Dioxide Level 28 mmol/L Anion Gap 15 Blood Urea Nitrogen 14 mg/dl Creatinine 0.78 mg/dl Est Glomerular Filtrat Rate mL/min > 60 mL/min Glucose Level 232 mg/dl Calcium Level 9.7 mg/dl Total Bilirubin 0.2 mg/dl Direct Bilirubin 0.00 mg/dl Indirect Bilirubin 0.2 mg/dl Aspartate Amino Transf (AST/SGOT) 26 IU/L Alanine Aminotransferase (ALT/SGPT) 24 IU/L Alkaline Phosphatase 155 IU/L Troponin I < 0.012 ng/ml Total Protein 8.3 g/dl Albumin 4.8 g/dl Globulin 3.50 g/dl Albumin/Globulin Ratio 1.37 Lipase 273 U/L Current Medications Medications Dose Sig/Chica Start Time Status Last (Trade) Ordered Route PRN Stop Time Admin Dose Reason Admin Lorazepam 0.5 mg ONCE ONCE 01/02/19 DC 01/02/19 (Ativan) PO 00:00 00:32 01/02/19 00:01 Ketorolac 30 mg ONCE STAT 01/01/19 DC 01/02/19 Tromethamine IM 23:52 01/01/19 00:32 (Toradol) 23:53 Procedures/MDM Patient placed on surveillance system monitor rhythm strip revealed a sinus rhythm at about 90 bpm. Patient was afebrile. EKG performed, read by me: 89 bpm, normal sinus rhythm, normal axis, no acute ST segment changes, narrow QRS complex, with good R-wave progression in precordial leads. I administered Toradol 30 mg IM x1 and lorazepam 0.5 mg p.o. x1 for her symptoms. CBC and electrolytes were normal, liver function tests were normal, troponin was negative. Patient's hypertension improved and symptoms improved, she is no longer anxious and feels much better. Differential diagnoses considered, included but not limited to acute coronary syndrome, pulmonary embolism, aortic dissection, abdominal aortic aneurysm, sepsis, stroke, meningitis, encephalitis, pneumonia, appendicitis, cholecystitis, bowel obstruction, pyelonephritis, nephrolithiasis, cystitis, as well as metabolic, hematologic, and electrolyte abnormalities. As well as abscess, cellulitis, fractures, and dislocations. Patient feels much better at this time, and vital signs are normal, symptoms have improved. I did give strict instructions to return to the ED if symptoms continue or worsen, patient will otherwise follow-up with primary care physician. Patient understood instructions and agreed to plan. Disclaimer: Inadvertent spelling and grammatical errors are likely due to EHR/dictation software use and do not reflect on the overall quality of patient care. Also, please note that the electronic time recorded on this note does not necessarily reflect the actual time of the patient encounter. Departure Diagnosis: Primary Impression: Hypertension Hypertension type: essential hypertension Qualified Codes: I10 - Essential (primary) hypertension Additional Impression: Acute anxiety Condition: LANA Baumann MD Jan 02, 2019 00:26
[2019-01-02] MEDS ORDERED: DIAZ5TAB PO (03:36)
[2019-01-02 05:15] VITALS: BP 146/68; PULSE 75; RESP 18
== END 2019-01-02 05:17 | disposition home or self-care (01) ==
LOC: E/R 23:03
DX: F41.9 Anxiety disorder, unspecified (principal); I10 Essential (primary) hypertension; E11.9 Type 2 diabetes mellitus without complications; Z79.84 Long term (current) use of oral hypoglycemic drugs
CPT/HCPCS: 36415; 80053; 83690; 84484; 85025; 93005; 96372; 99284; J1885

== ENCOUNTER 2019-06-12 08:13 | Emergency (ER) | payer OTHER, BC ==
[~2019-06-12] VITALS: Ht 162.6 cm; Wt 72.1 kg
[~2019-06-12 08:13] MED LIST changes: +DIAZ5TAB PO; +FAMO-96 PO; +PROM5SYR2 PO
[2019-06-12 08:16] VITALS: Ht 162.6 cm; Wt 72.1 kg
[2019-06-12] MEDS ORDERED: KETOROLAC 30 MG INJ IM STA (08:48)
[2019-06-12] MEDS ORDERED: HYDROCODONE/APAP (5/325) TAB PO ONE (09:00)
[2019-06-12 11:01] VITALS: BP 152/74; PULSE 80; RESP 20
== END 2019-06-12 11:02 | disposition home or self-care (01) ==
LOC: FTE 08:13
DX: R10.13 Epigastric pain (principal); E11.9 Type 2 diabetes mellitus without complications; I10 Essential (primary) hypertension; Z79.84 Long term (current) use of oral hypoglycemic drugs
CPT/HCPCS: 71045; 76705; 80053; 81003; 83690; 84484; 85025; 93005; 96372; 99285; J1885